=== PATIENT | female | born 1975 | race Caucasian/White ===

== ENCOUNTER → 2016-08-02 | Outpatient (CLI) | payer BC ==
--- NOTE | 2016-08-02 17:08 | DI ---
RIGHT DIAGNOSTIC MAMMOGRAMS, 08/02/2016 1:36 PM: Clinical History: Recall for abnormal screening mammogram. There are 2 low-density opaque nodules vargas suring about 6 mm seen on the craniocaudal projection posteriorly. Prior Exam: 07/26/2016. Digital tomosynthesis scans of the right breast are obtained with the [facility]. C-View images are obtained in the same projections as in the screening exam. A true right medi olateral projection is also obtained. CAD review is also performed. Breast tissue density is rated as having scattered areas of fibroglandular breast tissue. There is a spherical 8 mm well-circumscribed low-density opaque nodule located posteriorly lower outer quadrant near the central axis and just anterior to the pectoralis major muscle. This would be close to the 9: 00 position. The second lesion seen only on the exaggerated craniocaudal view represents a summation artifact. No abnormal calcifications are noted. Skin contour, nipple, and lower axillary region are n ormal. Follow Up: Breast ultrasound is pending. BIRADS Category: 2. Benign finding. There is a lesion that most likely represents either a fibroadeno ma or a benign cyst. The second lesion in question represents a summation artifact. Reading: Benign finding.
--- NOTE | 2016-08-02 17:22 | DI ---
RIGHT BREAST ULTRASOUND, 08/02/2016 1:36 PM: Clinical History: Recall for abnormal screening mammogram. 2 low-density opaque nodules were identifi ed in the right breast posteriorly. The diagnostic mammogram performed today shows that there is one lesion close to the central axis of the breast near the 9:00 position in the lower outer quadrant. It is well-circumscribed and measures approximately 8 mm in diameter. Mammographically, this either rep resents a benign cyst or a fibroadenoma. Scans are performed by the technologist and myself through all four quadrants of the right breast wit h the high resolution linear array probe. Color Doppler ultrasound was also performed. At approximately the 8:30-9:00 position close to the areola is a hypoechoic lesion measuring 8 x 8 x 4 mm. The position of this lesion corresponds to that seen on the mammogram. There is no enhanced thr ough transmission associated with this inhomogeneous hypoechoic lesion. This can represent a fibroade noma or it can represent a benign cyst filled with thick proteinaceous material. Because the lesion h as a benign appearance on mammography, this can be followed with a diagnostic mammogram and breast ul trasound of the right side in 6 months, or a more aggressive approach would be with needle aspiration or core biopsy of this lesion with ultrasound guidance followed by placement of a metallic clip with followup mammograms to verify that the clip in the lesion seen on mammography are in the same locati on. Follow Up: See above. BIRADS Category: 3: Probably benign finding. Initial short-interval follow-up suggested as above. Reading: Probably benign finding - short interval follow-up suggested.
== END ==
LOC: MAMMO 13:34
PROVIDERS: ATTEND Nurse Practitioner Family
DX: R92.8 Other abnormal and inconclusive findings on diagnostic imaging of breast (principal)
CPT/HCPCS: 76641; G0206; G0279

== ENCOUNTER 2017-03-05 11:34 | Inpatient (IN) ==
[2017-03-05] MEDS ORDERED: NORMAL SALINE 10 ML SYRINGE FLUSH IVP PRN ×2 (11:55→17:29)
[2017-03-05] MEDS ORDERED: Sodium Chloride 0.9% 1,000 ML PRIMARY IV ONE (11:55)
[2017-03-05] MEDS ORDERED: ONDANSETRON 4 MG/2 ML VIAL IVP ONE ×2 (11:57→13:20)
[2017-03-05] MEDS ORDERED: MORPHINE SULFATE 2 MG/1 ML IVP ONE (11:57)
--- NOTE | 2017-03-05 12:05 | EKG ---
[address] [address] Measurements Intervals [place] Rate: 74 P: 265 IN: 112 QRS: 59 QRSD: 105 T: -3 QT: 395 QTc: 423 Interpretive Statements JUNCTIONAL RHYTHM Compared to ECG 06/21/2014 10:39:55 ST (T wave) deviation no longer present Electronically Signed On 03-05-17 18:17:59 MDT by Drake Martinez [email or web address]
--- NOTE | 2017-03-05 12:24 | PDOC ---
General Adult HPI - General Chief Complaint: Dyspnea Stated Complaint: DYSPNEA W/ BACK PAIN Date Seen by Provider: 03/05/17 Time Seen by Provider: 11:35 Source: POSITIVE: Patient Exam Limitations: POSITIVE: No limitations Nurse's Notes Reviewed & Considered: Yes - History of Present Illness Initial Comment: The patient is a 41-year-old female who presents to the emergency department with back pain and some shortness of breath. She states that a proximally 2 hours ago she had onset of pain across her mid back. This was associated with some increase shortness of breath and increased pain with taking a breath. She states that the pain is more in the center of her back and now she has some pain also in the epigastric region. She states that she has not had similar pain in the past. She denies nausea or vomiting or chest pain. She does report that she feels some palpitation in her chest however denies pain. She states that she had eaten some peanuts just prior to onset of pain. She initially presented to the walk-in clinic and they referred her here to the emergency department. She reports she does have a history of irregular heartbeat and was on some medication for her heart in the past however she does not currently take anything. In addition she has a history of varicose veins and is scheduled for a laser surgery in March. She does report some increased swelling in her ankles recently. She has not had any prior abdominal surgeries. She has had a uterine ablation. She has a history of kidney stones however states that her current pain is different than pain she experienced associated with kidney stones. Have you received a tetanus shot in the past 10 years?: Unknown - Patient Home Medications Home Medications: Home Medications Acetaminophen [Tylenol] 500 mg PO PRN PRN 03/05/17 - Patient Allergies Allergies/Adverse Reactions: Allergies 3 Allergy/AdvReac Type Severity Reaction Status Date / Time Penicillins Allergy Severe Anaphylaxis Verified 03/05/17 11:49 hydromorphone HCl AdvReac Severe RESPIRATORY Verified 03/05/17 11:49 [From Dilaudid] DEPRESSION/ALL NARCS Past Medical History - heen HEENT History: Denies History Cardiovascular History: Arrhythmia Additional Cardiovasular History: HX OF INTERMITTENT A-FLUTTER. WAS STARTED ON METOPROLOL AND HAS DONE WELL SINCE. 03/05 PT REPORTS NOT TAKING ANYMORE Respiratory History: Asthma Gastrointestinal History: Denies History Genitourinary History: Kidney Stones Endocrine History: Denies History Musculoskeletal History: Denies History Prosthesis or Implant: No Neurological History: Denies History Blood Disorders: Denies History Additional Blood Disorders History: VARICOSE VEINS Psychiatric History: Depression Additional Female Reproductive History: ABLATION Cancer History: Denies History In Past Year Been Physically Harmed or Verbally Threatened: No History of MDRO: No Tobacco Use: Never Smoker Alcohol Use: Occasionally In the Past 12 Months, Have Used or Abuse Any Substance: None Previous Surgical History: Yes Type / Date of Surgery: COLONOSCOPY/ EGD/ TUBAL/ ENDOMETRIAL BX/ UTERINE BX/ VERICOSE VEIN SX Anesthesia Reactions: No Malignant Hyperthermia: No Significant Family History: Heart disease, Hypertension, Lung disease Additional Family History: HTN, R-NNC-EMHMOW COLON CANCER, LUNG PROBLEMS-FATHER Past Medical History Reviewed: Reviewed - No Changes ROS - Limitations ROS Limitations: No Limitations Constitution: DENIES: Chills, Fever Cardiovascular: REPORTS: Heart Palpitations, Edema (Ankles bilateral). DENIES: Chest Pain, Blood Pressure Problem Respiratory: REPORTS: Hurts To Breathe, Shortness Of Breath. DENIES: Cough Non Productive, Cough Productive Neurological: REPORTS: Denies Neuro Symptoms Gastrointestinal: REPORTS: Abdominal Pain (Epigastric abdominal pain). DENIES: Nausea, Vomitting, Diarrhea Musculoskeletal: REPORTS: Denies MS Symptoms Genitourinary: REPORTS: Denies Symptoms Eyes: REPORTS: Denies Symptoms ENT: REPORTS: Denies Symptoms Skin: DENIES: Rash General Adult Exam - General Appearance General Appearance: POSITIVE: Alert, Cooperative, No Acute Distress - HEENT HEENT: POSITIVE: Head Inspection Nml, Eyes Inspection Nml, Ears Inspection Nml, Nose Inspection Nml, Pharynx Inspect. Nml - Neck Neck: POSITIVE: Normal Inspection. NEGATIVE: Lymphadenopathy - Respiratory Respiratory: POSITIVE: No Respiratory Distress, Breath Sounds Normal, Chest Non- Tender - Cardiovascular Cardiovascular: POSITIVE: Regular Rate & Rhythm, No Murmur - Abdomen Abdomen: Soft: (All Quadrants), Normal Bowel Sounds: (All Quadrants), No Guarding: (All Quadrants), No Rebound: (All Quadrants), No Distention: (All Quadrants) Additional Abdominal Details: She does have tenderness in the epigastric region and primarily in the right upper quadrant - Skin Skin: POSITIVE: Normal Color, No Rash - Extremities Extremity: Normal ROM: (All Extremities), Normal Inspection: (All Extremities) - Neurological / Psychological Neurological: POSITIVE: Oriented X3, Motor Normal, Sensation Normal General Adult Progress - Results Reviewed by me Xrays/CTs/US Reviewed by me: Yes Discussed with Radiologist: Yes Radiology Findings: Chest x-ray is normal per radiologist. CTA of the chest is normal with no evidence of PE or dissection per radiologist. CT of the abdomen and pelvis reveals no acute intra-abdominal findings per radiologist. Lab Results Reviewed by Me: Yes CBC and BMP: 03/05/17 12:23 03/05/17 12:23 EKG Interpretation:: POSITIVE: Normal Sinus Rhythm, Normal Rate, Normal Intervals, Normal QRS, Normal ST/T - Patient's Progress MDM / ED Course: The patient appeared to be quite uncomfortable on arrival and she was rating her pain about a 5 out of 10. An IV was established and the patient did receive morphine 2 mg IV and Zofran 4 mg IV for pain. Her initial EKG shows no acute ST segment or T-wave changes. The patient had continued pain and received a second dose of morphine 4 mg IV. Her lab work is all essentially unremarkable with normal white count, normal liver enzymes, normal amylase and lipase, normal d-dimer and normal troponin. The patient was having ongoing pain and received a second dose of Zofran 4 mg IV and fentanyl 50 g IV. She did get temporary relief of pain with this. Because of her continued pain which was now more focal in the right upper quadrant and back a CTA of the chest was done to rule out dissection or aneurysm which was normal. CT the abdomen and pelvis showed no acute abnormality. After CT she was having continued pain and received a second dose of fentanyl. At this point it is unclear exactly what is causing her pain. It is possible that this might be biliary colic as she is quite tender in the right upper quadrant. In addition she may have some component of gastritis or ulcer. She was given Protonix 40 mg IV. I did discuss these findings with the patient. Given her current amount of pain decision was made to go ahead and admit for further workup. I did discuss patient with Dr. Avitia and he is agreed to admit the patient for further treatment and evaluation. The patient and her are in agreement with this plan. - Consult Counseled: POSITIVE: Patient, Family, RE: Lab Results, RE: Radiology Results, RE : DX Patient Care Time - Estimated PCT Patient Care Time (In Minutes): 55 Vital Signs - Recent Vital Signs Vital Signs: Vital Signs (Last 8 hours) Temp Pulse Pulse Pulse Resp BP BP 03/05/17 17:30 80 16 03/05/17 17:04 98 F 67 16 138/95 03/05/17 13:44 76 14 03/05/17 12:40 14 03/05/17 11:34 97.2 F 92 16 135/82 Pulse Ox 03/05/17 17:30 03/05/17 17:04 100 03/05/17 13:44 100 03/05/17 12:40 100 03/05/17 11:34 94 - VS Reviewed Vital Signs Reviewed: Yes Discharge Clinical Impression: Right upper quadrant pain, Back pain Discharge Disposition: Admit to Inpatient Condition: Fair Date Decision to Admit to Inpatient: 03/05/17 Time Decision to Admit to Inpatient: 15:45
[2017-03-05 12:46] LABS: BASOPHILS # (AUTO) 0.02 10*3/UL; BASOPHILS % (AUTO) 0.3 % (0-1); BILIRUBIN,URINE NEGATIVE (NEG); CLARITY,URINE CLEAR (CLEAR); COLOR,URINE YELLOW (Y); EOSINOPHILS # (AUTO) 0.25 10*3/UL; EOSINOPHILS % (AUTO) 3.3 % (0-8); GLUCOSE, URINE (UA) NEGATIVE (NEG); Hematocrit [HCT] 44.3 % (37.0-47.0); Hemoglobin [HGB] 14.7 g/dL (12.0-16.0); LYMPHOCYTES # (AUTO) 2.59 10*3/uL; MEAN CORPUSCULAR HEMOGLOBIN 29.9 PG (27-31); MEAN CORPUSCULAR HGB CONC 33.2 g/dL (33-37); MONOCYTES % (AUTO) 7.9 % (5-15); NEUTROPHILS % (AUTO) 54.2 % (50-80); NITRATE,URINE NEGATIVE (NEG); OCCULT BLOOD,URINE NEGATIVE (NEG); PROTEIN,URINE NEGATIVE (NEG); RED BLOOD COUNT 4.92 10^6/uL (4.20-5.40); URINE SAMPLE TYPE CLEAN CATCH URINE; UROBILINOGEN,URINE 0.2 EU/dL (0.2)
[2017-03-05 12:55] LABS: LIPASE 164 IU/L (23-300)
[2017-03-05 12:56] LABS: BLOOD UREA NITROGEN 12 mg/dL (7-22); SERUM ALBUMIN 4.2 g/dL (3.5-4.8)
[2017-03-05] MEDS ORDERED: MORPHINE SULFATE 4 MG/1 ML IVP ONE (13:00)
[2017-03-05] MEDS ORDERED: LIDOCAINE W/ SODIUM BICARB 0.5 ML SYR ONE ×2 (13:13→15:28)
[2017-03-05 13:15] LABS: PLATELET MORPHOLOGY COMMENT NORMAL MORPHOLOGY (NORM); RBC MORPHOLOGY COMMENT NORMAL MORPHOLOGY (NORM); WBC MORPHOLOGY COMMENT NORMAL MORPHOLOGY (NORM)
[2017-03-05] MEDS ORDERED: fentaNYL Inj 100 MCG/2 ML VIAL IVP ONE ×2 (13:20→15:30)
--- NOTE | 2017-03-05 13:42 | DI ---
XR CXR 1VW,03/05/2017 11:56 AM: Clinical History: Dyspnea Previous Exam: None at this facility. Findings: A single frontal radiograph of the chest is obtained, and demonstrate clear lungs. The cardiomediasti num and bony thorax are unremarkable. Impression: Normal chest.
--- NOTE | 2017-03-05 15:04 | DI ---
CT CTA Chest Non-Coronary O,03/05/2017 1:00 PM: Clinical History: Pleuritic back pain. Previous Exam: None at this facility. Findings: Multiple helically acquired CT images are obtained through the chest following intravenous administra tion of 70 cc of Isovue 300, and demonstrate some mild subsegmental atelectasis. The pulmonary arteries are normal without filling defect or truncation to suggest pulmonary embolism. There is no evidence of infiltrate nor effusion. Skeletal structures are unremarkable. The upper abdomen is unremarkable. Impression: No evidence of pulmonary embolism.
--- NOTE | 2017-03-05 15:08 | DI ---
CT Abdomen/Pelvis W Contrast,03/05/2017 1:00 PM: Clinical History: Upper abdominal pain. Previous Exam: June 19, 2014 Findings: Multiple helically acquired CT images are obtained through the abdomen and pelvis following the intra venous administration of 70 mL of Isovue 300. There is a trace amount of free fluid within the deep pelvis. The urinary bladder is unremarkable. Th e uterus is not well valuated. There is no evidence of acute appendicitis. The liver, gallbladder, spleen, pancreas, adrenals and kidneys are unremarkable. There is moderate st ool throughout the colon. There is no mesenteric or retroperitoneal lymphadenopathy. There is a small 3 mm calcification within the inferior pole of the left kidney. The stomach is not well evaluated. The pancreas is also unremarkable. Impression: No acute intra-abdominal pathology.
[2017-03-05] MEDS ORDERED: Pantoprazole Inj 40 MG in Normal Saline Flush 10 ML IVP ONE (15:31)
--- NOTE | 2017-03-05 16:50 | PDOC ---
HPI - History of Present Illness Date and Time of Service: 03/05/2017 6:13 PM Chief Complaint: Back and abdominal pain with vomiting started today History of Present Illness: This is a 41 years old female with medical history significant for history of previous kidney stones, previous atrial fibrillation which is not an issue anymore who came into the hospital with pain in the back and then the epigastric area and right upper quadrant area. The pain she said started this morning about 10 in the morning was in the mid back around the bra area and then felt in the epigastrium and right upper quadrant. She did not have these symptoms before. She did vomit twice down in the ER. She did say that she felt her heart going fast initially but that's gone. Because of all the symptoms she went to the urgent clinic and from there she was sent to the ER. In the ER she had a CT of the abdomen and chest were negative. She had lab tests which were negative she continued to complain from severe pain was given multiple pain medications and she was admitted. She described her pain to be at 6 out of 10. Pain is mainly on the right side of the shoulder area and goes to the front of the right upper quadrant and epigastrium which is tender. there was no fever. She did say that she vomited twice. Never had this kind of pain before. This pain is different from what she had when she had her kidney stones. She thinks her pain would increase in the right upper quadrant if she takes some deep breath. Past Medical History Medical History: 1. History of kidney stones. 2. History of previous atrial fibrillation is not an issue anymore. 3. Asthma which was in the past Surgical History: History of endometrial ablation 2013 Pertinent Family History: Father had colon cancer and at age of 62 Past Social History: Doesn't smoke, rarely drinks no drugs Tobacco Use: Never Smoker In the Past 12 Months, Have Used or Abuse Any of the Following Substance: None Alcohol Use: Rarely Medication / Allergies Home Medications: Home Medications Medication Instructions Recorded Confirmed Type Acetaminophen [Tylenol] 500 mg PO PRN PRN 03/05/17 03/05/17 History Allergies/Adverse Reactions: Allergies 3 Allergy/AdvReac Type Severity Reaction Status Date / Time Penicillins Allergy Severe Anaphylaxis Verified 03/05/17 18:29 hydromorphone HCl AdvReac Severe RESPIRATORY Verified 03/05/17 18:29 [From Dilaudid] DEPRESSION/ALL NARCS Review of Systems - Review of Systems All Systems: Reviewed & No Additional Complaints Except as Stated Exam - General General Appearance: Cooperative Additional General Exam Details: She is somewhat uncomfortable. - Head Head Exam: Normal Inspection, Atraumatic - Eye Eye Exam: POSITIVE: Normal Appearance - ENT ENT Exam: POSITIVE: Normal Exam - Neck Neck Exam: Normal Inspection - Respiratory Respiratory Exam: POSITIVE: Clear to Auscultation - Bilaterally - Cardiovascular Cardiovascular Exam: POSITIVE: RRR - GI/Abdominal GI/Abdominal Exam: POSITIVE: Normal Bowel Sounds, Non Distended, Soft Additional GI/Abdominal Exam Details: Tenderness noted in the epigastrium and right upper quadrant. No rebound present. Abdomen is soft. - Rectal Rectal Exam: POSITIVE: Deferred - External Exam: POSITIVE: Deferred - Extremities Extremities Exam: POSITIVE: Normal Inspection - Back Back Exam: POSITIVE: Normal Inspection - Neurological Neurological Exam: POSITIVE: Alert, Oriented x 3, CN II-XII Intact, Speech Intact / Clear, Moves All Extremities Equally - Psychiatric Psychiatric Exam: POSITIVE: Normal Affect - Integumentary Integumentary Exam: POSITIVE: Normal Color Results - Labs CBC and BMP: 03/05/17 12:23 03/05/17 12:23 - Imaging Status: Report Reviewed by Me (1. CT of the chest was negative for PE, CT of the abdomen and pelvis showed no acute intra-abdominal abnormalities. There is trace amount of free fluid within the deep pelvis. There is a small 3 mm calcification within the inferior pole of the left kidney) Assessment and Plan - Patient Problems (1) Right upper quadrant pain Current Visit: Yes Status: Acute Comment: This may be a gallbladder pain, the gallbladder was described as normal on the CT. There may be some distention I think on the C, I think will order ultrasound for her. will Put on IV fluids, pain medications and antiemetics. If negative she may need to have a HIDA scan. I did speak with Dr. Morris he knows about her. Will repeat her labs in the morning. Code(s): R10.11 - Right upper quadrant pain
[2017-03-05] MEDS ORDERED: ONDANSETRON 4 MG/2 ML VIAL IVP PRN (17:29)
[2017-03-05] MEDS ORDERED: LIDOCAINE W/ SODIUM BICARB 0.5 ML SYR SUBD PRN (17:29)
[2017-03-05] MEDS: MORPHINE SULFATE 2 MG/1 ML IVP PRN ×2 (18:10→21:06)
[2017-03-05] MEDS ORDERED: ACETAMINOPHEN 325 MG TABLET PO PRN (19:37)
[2017-03-06] MEDS: MORPHINE SULFATE 2 MG/1 ML IVP PRN ×4 (01:09→09:20)
[2017-03-06 05:14] LABS: BASOPHILS # (AUTO) 0.01 10*3/UL; BASOPHILS % (AUTO) 0.1 % (0-1); EOSINOPHILS # (AUTO) 0 10*3/UL; EOSINOPHILS % (AUTO) 0 % (0-8); Hematocrit [HCT] 43.1 % (37.0-47.0); Hemoglobin [HGB] 13.9 g/dL (12.0-16.0); LYMPHOCYTES # (AUTO) 1.48 10*3/uL; MEAN CORPUSCULAR HEMOGLOBIN 29.1 PG (27-31); MEAN CORPUSCULAR HGB CONC 32.3 g/dL (33-37); MEAN CORPUSCULAR VOLUME 90.4 FL (81-99); MEAN PLATELET VOLUME 10.3 FL (7.4-12.2); MONOCYTES % (AUTO) 9.2 % (5-15); NEUTROPHILS # (AUTO) 12.29 10*3/UL; NEUTROPHILS % (AUTO) 80.8 % (50-80); RED BLOOD COUNT 4.77 10^6/uL (4.20-5.40)
[2017-03-06 05:41] LABS: BLOOD UREA NITROGEN 8 mg/dL (7-22); PLATELET MORPHOLOGY COMMENT NORMAL MORPHOLOGY (NORM); RBC MORPHOLOGY COMMENT NORMAL MORPHOLOGY (NORM); SERUM ALBUMIN 3.4 g/dL (3.5-4.8); WBC MORPHOLOGY COMMENT NORMAL MORPHOLOGY (NORM)
[2017-03-06 05:42] LABS: LIPASE 84 IU/L (23-300)
[2017-03-06] MEDS ORDERED: MORPHINE SULFATE 2 MG/1 ML IVP ONE (06:38)
[2017-03-06] MEDS ORDERED: Pantoprazole Inj 40 MG in Normal Saline Flush 10 ML IVP SCH (09:00)
--- NOTE | 2017-03-06 09:10 | DI ---
US Abdomen Limited,03/06/2017 7:00 AM: Clinical History: Right upper quadrant pain Previous Exam: March 05, 2017 Findings: Multiple transabdominal grayscale and color Doppler sonographic images are obtained of the right uppe r quadrant, and demonstrate multiple layering stones within the gallbladder. These do not shadow joe paris. The right kidney is normal measuring 9.9 cm in length without hydronephrosis nor nephrolithiasis. The hepatic parenchyma is normal. The common bile duct is prominent measuring 7 mm. The pancreas is not well seen. There is no evidence of ascites nor pericholecystic fluid. The gallbladder wall measures 3 mm. Impression: 1. Cholelithiasis. 2. Dilated common bile duct.
[2017-03-06] MEDS ORDERED: LIDOCAINE W/ SODIUM BICARB 0.5 ML SYR SUBD PRN (09:18)
[2017-03-06] MEDS ORDERED: NORMAL SALINE 10 ML SYRINGE FLUSH IVP PRN ×2 (09:18→14:04)
--- NOTE | 2017-03-06 09:25 | CONSULT ---
Consult Note - Consult Consult Date: 03/06/17 Reason for Consult: PreOp Consulation : General Surgery Requesting Physician: Dr. Avitia Primary Care Provider: Tarsha Lan MS, [employer] - History of Present Illness History of Present Illness: The patient is a 41-year-old female who report problems began yesterday morning. About 10:00 she had pain across her back below her bra line. It then went up and down and moved to the right lower quadrant. She reports she's never had a pain like this before. She doesn't really feel gassier bloated. She had a roast the night before. She denies any early satiety. Patient presented to the emergency room. Her lab work was essentially unremarkable. She had a CTA of her chest which is unremarkable she had a CT of her abdomen which was unremarkable. She had focal right upper quadrant tenderness and an ultrasound was done this morning. The ultrasound shows a gallbladder with multiple stones. The wall was 3 mm in thickness. The common duct is 7 mm. Her white count was increased to 15,000 today. Her liver functions are essentially unremarkable. There is a mild elevation of transaminase. Her bilirubin and alkaline phosphatase are normal. Her amylase and lipase are normal. Patient continues to have pain requiring morphine. The pain has not gone away. She remains focally tender in her right upper quadrant. She reports everybody in her family has had gallbladder problems. Review of Systems - Respiratory Respiratory: DENIES: Negative System Review, Cough, Sputum, Dyspnea At Rest, Dyspnea with Exertion, Pleuritic Pain, Hemoptysis, Wheezing, Other, See HPI - Cardiovascular Cardiovascular: REPORTS: Chest Pain (In her back.). DENIES: Negative System Review, Edema, Syncope, Palpitations, Orthopnea, Paroxysmal Nocturnal Dyspnea, Other, See HPI - Gastrointestinal Gastrointestinal / Abdominal: REPORTS: Abdominal Pain, See HPI Past Medical History Medical History: 1. History of kidney stones. 2. History of previous atrial fibrillation is not an issue anymore. 3. Asthma which was in the past Surgical History: History of endometrial ablation 2014. Prior colonoscopy. Tubal ligation. Pertinent Family History: Father had colon cancer and at age of 62 Past Social History: Doesn't smoke, rarely drinks no drugs Tobacco Use: Never Smoker In the Past 12 Months, Have Used or Abuse Any of the Following Substance: None Alcohol Use: Rarely Medication / Allergies Home Medications: Home Medications Medication Instructions Recorded Confirmed Type Acetaminophen [Tylenol] 500 mg PO PRN PRN 03/05/17 03/05/17 History Allergies/Adverse Reactions: Allergies 3 Allergy/AdvReac Type Severity Reaction Status Date / Time Penicillins Allergy Severe Anaphylaxis Verified 03/05/17 18:29 hydromorphone HCl AdvReac Severe RESPIRATORY Verified 03/05/17 18:29 [From Dilaudid] DEPRESSION/ALL NARCS Results - Labs CBC and BMP: 03/06/17 04:10 03/06/17 04:10 - Imaging Status: Image Reviewed by Me (And discussed with the radiologist.), Report Reviewed by Me Exam - Vitals Vital Signs: Vital Signs Temperature 99.1 F Temperature Source Oral Pulse Rate [Apical] 80 Pulse Rate [Pulse Oximeter] 85 Pulse Rate 67 Respiratory Rate 18 Blood Pressure [Left Arm] 108/63 Blood Pressure 138/95 Pulse Ox 91 Oxygen Flow Rate 1 Oxygen Delivery Method Room Air Height 5 ft 9 in Weight 177 lb - General General Appearance: Cooperative, Mild Distress - Respiratory Respiratory Exam: POSITIVE: Clear to Auscultation - Bilaterally, Breathing Non Labored - Cardiovascular Cardiovascular Exam: POSITIVE: RRR, No Murmur - GI/Abdominal GI/Abdominal Exam: POSITIVE: Normal Bowel Sounds, Non Distended, Guarding ( Right upper quadrant), Positive for RUQ Pain - Neurological Neurological Exam: POSITIVE: Alert, Oriented x 3 - Psychiatric Psychiatric Exam: POSITIVE: Normal Affect, Normal Mood Assessment and Plan - Patient Problems (1) Cholelithiasis and acute cholecystitis without obstruction Current Visit: Yes Status: Acute Priority: High Onset Date: 03/05/17 Comment: Very tender in her right upper quadrant. Her white count is up. Antibiotics have been ordered. We will proceed with laparoscopic cholecystectomy with intraoperative cholangiogram later today.The procedure has been discussed with the patient in complete yet simple terms including benefits , risks, and alternatives. All questions have been answered. Informed consent has been obtained. Code(s): K80.00 - Calculus of gallbladder with acute cholecystitis without obstruction
[2017-03-06] MEDS ORDERED: Ertapenem Inj 1 GM in Sodium Chloride 0.9% 100 ML IV SCH (09:30)
[2017-03-06] MEDS ORDERED: Lactated Ringers 1,000 ML PRIMARY IV SCH (09:30)
[2017-03-06] MEDS ORDERED: Iothalamate Meglumine 30 ML VIAL IV ONE ×2 (09:46→10:10)
[2017-03-06] MEDS ORDERED: Sodium Chloride 0.9% vial 60 ML ONE (09:46)
[2017-03-06] MEDS ORDERED: BUPIVACAINE 0.5% W/ EPI - 10 ML VIAL ONE (09:46)
[2017-03-06] MEDS ORDERED: BUPIVACAINE 0.25% W/ EPI - 10 ML VIAL ONE (10:09)
[2017-03-06] MEDS ORDERED: Sodium Chloride 0.9% vial 10 ML ONE ×2 (10:10→11:01)
[2017-03-06] MEDS ORDERED: Bacteriostatic NaCl Inj 30ml Vial ONE (10:10)
[2017-03-06] MEDS ORDERED: ROCURONIUM 10 MG/1 ML - 5 ML VIAL IVP ONE (10:59)
[2017-03-06] MEDS ORDERED: ONDANSETRON 4 MG/2 ML VIAL ONE (11:00)
[2017-03-06] MEDS ORDERED: MIDAZOLAM 5 MG/1 ML ONE (11:00)
[2017-03-06] MEDS ORDERED: ONDANSETRON 4 MG/2 ML VIAL IVP ONE (11:00)
[2017-03-06] MEDS ORDERED: fentaNYL Inj 250 MCG/5 ML VIAL IVP PRN (11:00)
[2017-03-06] MEDS ORDERED: fentaNYL Inj 250 MCG/5 ML VIAL ONE (11:00)
[2017-03-06] MEDS ORDERED: SCOPOLAMINE HYDROBROMIDE 1.5 MG - 1 EACH PATCH TRANSDERM ONE ×2 (11:00)
[2017-03-06] MEDS ORDERED: LIDOCAINE MPF 2% - 5 ML (20 MG/1 ML) ONE (11:01)
[2017-03-06] MEDS ORDERED: PROPOFOL 10 MG/1 ML (200 MG/20 ML) VIAL IV ONE (11:01)
[2017-03-06] MEDS ORDERED: fentaNYL Inj 100 MCG/2 ML VIAL ONE (11:01)
[2017-03-06] MEDS ORDERED: DEXAMETHASONE PF 10 MG/1 ML VIAL ONE (12:33)
[2017-03-06] MEDS ORDERED: KETOROLAC 30 MG/1 ML VIAL ONE (12:54)
[2017-03-06] MEDS ORDERED: SUGAMMADEX SODIUM 200 MG/2 ML VIAL IV ONE (12:58)
[2017-03-06] MEDS ORDERED: Lactated Ringers 1,000 ML PRIMARY IV ONE (13:05)
--- NOTE | 2017-03-06 13:20 | GEN.OPNOTE ---
Operative Note Surgery Date: 03/06/17 Preoperative Diagnosis: Acute cholecystitis with cholelithiasis. Postoperative Diagnosis: Acute gangrenous cholecystitis with cholelithiasis. Procedure: Laparoscopic cholecystectomy with intraoperative cholangiogram. Surgeon: Roland Morris MD Base Brander: Param Lucia MD Anesthesia Provider: Shauna Martini CRNA Anesthesia Type: General Estimated Blood Loss (mL): 15 Fluids: 1400 mL of crystalloid. 1 g of IV Invanz this morning. 15 mg of IV Toradol at the end of the procedure. Pathology: Specimen to pathology. Indications: Focal right upper quadrant pain with guarding and rebound. Ultrasound shows multiple stones. White count is elevated. Liver function tests are normal. Findings: Acute gangrenous cholecystitis. Multiple stones. Stone in the cystic duct. Intraoperative cholangiogram showed a normal sized duct with no filling defects. There is flow into the duodenum. There is a normal distal tapering and a normal branching pattern. No other intra-abdominal pathology. Complications: None. Operative Summary: The patient was taken to the operating room and placed on the operating table in the supine position. Following induction of general anesthetic the abdomen was prepped and draped in a sterile fashion. A surgical timeout was done. The infraumbilical region was infiltrated with 1/4% Marcaine with epinephrine. An incision was made. The abdominal wall was elevated. A Veres needle was placed without apparent injury and a pneumoperitoneum was induced. The veres needle was withdrawn. A 10 mm trocar was placed without apparent injury and a laparoscope was inserted. Under direct visualization and following Marcaine injection a 10 mm trocar was placed in the epigastrium and 2x5 mm trochars were placed along the costal margin. There were adhesions to the gallbladder which were taken down. The gallbladder was edematous and gangrenous. The gallbladder was grasped and elevated. Blunt dissection was used to free the cystic duct. A clip was placed along the neck of the gallbladder. A hole was made in the side wall of the cystic duct. A Johnson cholangiocatheter was inserted. Intraoperative cholangiogram was taken and was normal as previously dictated. The Johnson catheter was withdrawn. 2 clips were placed on the distal cystic duct and the duct was divided. The cystic artery was isolated. 2 clips were placed proximally and one distally and the artery was divided. The gallbladder was taken from the hepatic bed using electrocautery. It was placed in an Endopouch. Hemostasis was assured. Appropriate irrigation and suctioning were performed. Final check for hemostasis was made. 10 mL of Marcaine was placed in the gallbladder fossa and 10ml were placed over the dome of the liver. The laparoscope was moved to the epigastric port. The gallbladder was grasped with a large grasper and brought up to the umbilical trocar site. The fascial defect at the umbilicus was slightly increased in size. The gallbladder was brought out through the trocar site without difficulty. The fascial defect at the umbilicus was closed with a running 0 Vicryl. A final check for hemostasis was made. The CO2 was burped from the abdominal cavity. The trochars were removed under direct visualization. No other trocar sites required fascial closure. The skin wounds were closed with inverted interrupted or running subcuticular 4-0 Monocryl followed by Mastisol Steri- Strips and an appropriate dressing. Patient tolerated the procedure well without complication. Patient was taken to the recovery room in stable condition. All counts were correct. Patient Problems - Patient Problem List (1) Cholelithiasis and acute cholecystitis without obstruction Current Visit: Yes Status: Acute Onset Date: 03/05/17 Priority: High Code(s): K80.00 - Calculus of gallbladder with acute cholecystitis without obstruction Category: Medical
[2017-03-06] MEDS ORDERED: ONDANSETRON 4 MG/2 ML VIAL IVP PRN (14:04)
[2017-03-06] MEDS ORDERED: MORPHINE SULFATE 2 MG/1 ML IVP PRN (14:04)
[2017-03-06] MEDS: Lactated Ringers 1,000 ML PRIMARY IV SCH (14:30)
--- NOTE | 2017-03-06 15:31 | DI ---
XR CHOLANGIOGRAM INTRAOP,03/06/2017 11:00 AM: Clinical History: Gallstones. Previous Exam: None at this facility. Findings: 5 views of the right upper quadrant are obtained as part of an intraoperative cholangiogram, and demo nstrate a normal-appearing common bile duct without filling defect. There is free spillage into the duodenum. Patient is status post cholecystectomy. Intrahepatic biliary ducts are grossly normal. The pancreatic duct is not seen on this exam. There was a filling defect noted on one of the views, but this appeared to move on subsequent images and is most consistent with a bubble. Impression: Normal intraoperative cholangiogram.
--- NOTE | 2017-03-06 15:39 | CRNA.PROGR ---
Anesthesia Time - - Start date: 03/06/17 End date: 03/06/17 - Procedure/Recovery Time Anesthesia : Time In: 11:51 Anesthesia : Time Out: 13:27 Anesthesia : Total Time: 96 - Total Anesthesia Time Total Anesthesia Time (minutes): 96 - Other Weight: 80.286 kg Height: 5 ft 9 in Body Mass Index (BMI): 26.1 Physical Status: P1 (Healthy except for acute Gallbladder.) Anesthesia Type: General Anesthesia : ET
--- NOTE | 2017-03-06 15:40 | CRNA.PROGR ---
Post Anesthesia Phase II - Post Anesthesia Phase II Patient Stable and Discharged To: Med/Surg (For antibiotics: Acute Gangrenous gallbladder.) Care Assumed By Surgeon: Roland Morris MD (Hospitalist also was consulted.) Temperature: 98.0 F Pulse Rate: 92 Respiratory Rate: 20 Blood Pressure: 135/83 Pulse Ox: 95 Total Taco Score at Discharge: 9 Post Anesthesia Discharge Criteria Met: Yes
[2017-03-06] MEDS: HYDROcodone-APAP 5 MG -325 MG TABLET PO PRN ×2 (16:36→20:39)
[2017-03-06] MEDS ORDERED: KETOROLAC 15 MG/1 ML VIAL IVP PRN (18:30)
--- NOTE | 2017-03-06 19:39 | PDOC(PROG) ---
Interval History: pt has been transferred to surgical service . discussed with Dr ortiz Objective : Data - Labs CBC and BMP: 03/06/17 04:10 03/06/17 04:10
[2017-03-06] MEDS: DOCUSATE 100 MG CAPSULE PO SCH (20:39)
[2017-03-07] MEDS: HYDROcodone-APAP 5 MG -325 MG TABLET PO PRN ×3 (00:19→09:08)
[2017-03-07 05:02] VITALS: RESP 18
[2017-03-07 07:06] VITALS: BP 114/69; TEMP 98.1; O2SAT 94
[2017-03-07 07:20] LABS: BASOPHILS # (AUTO) 0.01 10*3/UL; BASOPHILS % (AUTO) 0.1 % (0-1); EOSINOPHILS # (AUTO) 0 10*3/UL; EOSINOPHILS % (AUTO) 0 % (0-8); Hematocrit [HCT] 39.1 % (37.0-47.0); Hemoglobin [HGB] 12.7 g/dL (12.0-16.0); LYMPHOCYTES # (AUTO) 1.55 10*3/uL; MEAN CORPUSCULAR HEMOGLOBIN 29.5 PG (27-31); MEAN CORPUSCULAR HGB CONC 32.5 g/dL (33-37); MEAN CORPUSCULAR VOLUME 90.9 FL (81-99); MONOCYTES # (AUTO) 1.44 10*3/UL (0.3-0.8); MONOCYTES % (AUTO) 7.2 % (5-15); NEUTROPHILS # (AUTO) 16.87 10*3/UL; NEUTROPHILS % (AUTO) 84.7 % (50-80)
[2017-03-07 07:29] LABS: BLOOD UREA NITROGEN 7 mg/dL (7-22); SERUM ALBUMIN 3.2 g/dL (3.5-4.8)
[2017-03-07 07:51] LABS: PLATELET MORPHOLOGY COMMENT NORMAL MORPHOLOGY (NORM); RBC MORPHOLOGY COMMENT NORMAL MORPHOLOGY (NORM); WBC MORPHOLOGY COMMENT NORMAL MORPHOLOGY (NORM)
[2017-03-07] MEDS: DOCUSATE 100 MG CAPSULE PO SCH (09:07)
[2017-03-07] MEDS ORDERED: Ertapenem Inj 1 GM in Sodium Chloride 0.9% 100 ML IV SCH (09:30)
--- NOTE | 2017-03-07 11:31 | DCSUMMARY ---
Discharge Summary Admit Date: 03/05/17 Discharge Date: 03/07/17 Admitting Diagnosis: right upper quadrant abdominal pain. Back pain. Discharge Diagnosis: Acute cholecystitis with cholelithiasis. Primary Surgery and Date: Laparoscopic cholecystectomy with intraoperative cholangiogram-03/06/2017 Hospital Course: Patient is a healthy 41-year-old female who was admitted with back and right upper quadrant abdominal pain. Her workup in the emergency room included a CTA of her chest for an elevated d-dimer. That was negative. She had a CT scan of her abdomen and pelvis which was also normal. Her labs were unremarkable. She got an ultrasound of her gallbladder the morning following admission which showed an inflamed gallbladder with multiple stones. She had focal right upper quadrant abdominal pain. Her white count actually increased from the day prior. Her liver function tests remained normal. She was taken to the operating room and underwent a laparoscopic cholecystectomy with intraoperative cholangiogram. She had acute cholecystitis with a gangrenous gallbladder. It was removed without difficulty. Intraoperative cholangiogram was normal without evidence of biliary ductal obstruction. There was no other intra- abdominal pathology. This morning she feels much better. She has some right shoulder pain and some incisional pain but feels much better than the prior day. Her white count is elevated at 19,000. She got a dose of Invanz this morning which will cover her until tomorrow. Her AST and ALT are elevated consistent with a recent cholecystectomy. Her bilirubin and alkaline phosphatase are normal. Patient is tolerating a diet. She is ambulating and voiding. She wants to go home and I think she meets all criteria. We'll plan on discharge today with outpatient follow-up in 10-14 days. I will send her home on 5 additional days of antibiotics because of her elevated white count. Exam - Vitals Vital Signs: Vital Signs Temperature 98.1 F Temperature Source Temporal Artery Scan Pulse Rate [Apical] 84 Pulse Rate [Pulse Oximeter] 78 Pulse Rate 92 Respiratory Rate 18 Blood Pressure [Left Arm] 114/69 Blood Pressure 135/83 Pulse Ox 94 Oxygen Flow Rate 1 Oxygen Delivery Method Room Air Height 5 ft 9 in Weight 181 lb - General General Appearance: No Acute Distress, Cooperative - Respiratory Respiratory Exam: POSITIVE: Clear to Auscultation - Bilaterally, Breathing Non Labored - Cardiovascular Cardiovascular Exam: POSITIVE: RRR, No Murmur - GI/Abdominal GI/Abdominal Exam: POSITIVE: Non Distended, Soft, Diminished Bowel Sounds Additional GI/Abdominal Exam Details: Dressings are clean and dry and intact. Incisional abdominal tenderness only. - Neurological Neurological Exam: POSITIVE: Alert, Oriented x 3 - Psychiatric Psychiatric Exam: POSITIVE: Normal Affect, Normal Mood Data Perinent Studies: See history of present illness. Patient had a CTA of her chest. She had a CT abdomen and pelvis. She had a gallbladder ultrasound. She had an EKG. She had lab work and chest x-ray. Procedures: Laparoscopic cholecystectomy with intraoperative cholangiogram on 03/06/2017. Patient Problems - Patient Problem List (1) Cholelithiasis and acute cholecystitis without obstruction Current Visit: Yes Status: Acute Onset Date: 03/05/17 Priority: High Comment: See history of present illness. Patient underwent an uneventful laparoscopic cholecystectomy with intraoperative cholangiogram yesterday. She is tolerating a regular diet. She is ambulating. She is voiding. The only abnormality is an elevated white count which I think is reactive in nature. She got a gram Invanz this morning which will cover her until tomorrow. I will send her home on an additional 5 days of oral Levaquin as well as pain medications. She is to call for any problems. Code(s): K80.00 - Calculus of gallbladder with acute cholecystitis without obstruction Category: Medical
[2017-03-07] MEDS: Lactated Ringers 1,000 ML PRIMARY IV SCH (11:47)
== END 2017-03-07 12:19 | disposition home or self-care (01) | DRG 419 ==
LOC: ER 11:34 → MED/SURG 16:14
PROVIDERS: ADMIT Internal Medicine; ATTEND Internal Medicine